=== PATIENT | male | born 1965 | race African-American/Black ===

== ENCOUNTER 2016-10-13 10:21 | Emergency (ER) | payer MEDICARE ==
--- NOTE | 2016-10-13 11:26 | ER Document Report ---
ED Medical Screen (RME) - General Chief Complaint: Groin Pain Stated Complaint: HEAD PAIN Time seen by provider: 11:24 Mode of Arrival: Ambulatory Information source: Patient Notes: 51 yo male presents to ed for headache congestion groin pain left, anal pain for a few days. TRAVEL OUTSIDE OF THE [place] IN LAST 30 DAYS: No - HPI Onset: Other - few days Onset/Duration: Gradual, Worse Quality of pain: Achy, Dull, Sharp Severity: Moderate Pain Level: 4 Associated Symptoms: Cough (nonproductive), Rhinorrhea, Sinus pain/drainage, Other - groin and anal pain Exacerbated by: Movement Relieved by: Denies Similar symptoms previously: Yes Recently seen / treated by doctor: No - Related Data Smoking: Cigarettes Frequency of alcohol use: Social Drug Abuse: None Allergies/Adverse Reactions: No Known Allergies Allergy (Verified 10/13/16 10:45) Past Medical History Psychiatric Medical History: Reports: Hx Bipolar Disorder Past Surgical History: Reports: Hx Orthopedic Surgery - Immunizations Hx Diphtheria, Pertussis, Tetanus Vaccination: No Physical Exam - Vital signs Vitals: Temp Pulse Resp BP Pulse Ox 98.3 F 75 18 132/81 H 100 10/13/16 10:32 10/13/16 10:32 10/13/16 10:32 10/13/16 10:32 10/13/16 10:32 Course - Vital Signs Vital signs: Temp Pulse Resp BP Pulse Ox 98.3 F 75 18 132/81 H 100 10/13/16 10:32 10/13/16 10:32 10/13/16 10:32 10/13/16 10:32 10/13/16 10:32
[2016-10-13] MEDS ORDERED: IBUPROFEN 800 MG TABLET PO ONE (11:27)
--- NOTE | 2016-10-13 12:23 | ER Document Report ---
ED GI/ - General Mode of Arrival: Ambulatory Information source: Patient TRAVEL OUTSIDE OF THE [place] IN LAST 30 DAYS: No - HPI Patient complains to provider of: Groin pain Associated symptoms: Other - See above - General Chief Complaint: Groin Pain Stated Complaint: groin pain Notes: Patient is a 51 year old male, with a past medical history including bipolar disorder and hernia repair, who presents to the emergency department complaining of left sided groin pain onset 2-3 days ago. Patient states that he also has anal pain with bowel movements that is exacerbated by wiping. Patient has been using warm compressions and taking hot baths for relief. Patient also complains of headache and nasal congestion for the past week. Patient is prescribed Tylenol with Codeine #3. Patient states that he has a colonoscopy scheduled for 10/30. PCP: Dr. Pritchard (ILIR ANDERS) - Related Data Allergies/Adverse Reactions: No Known Allergies Allergy (Verified 10/13/16 10:45) Past Medical History - General Information source: Patient - Social History Smoking Status: Unknown if Ever Smoked Frequency of alcohol use: Social Drug Abuse: None Family History: None, Reviewed & Not Pertinent Psychiatric Medical History: Reports: Hx Bipolar Disorder Past Surgical History: Reports: Hx Herniorrhaphy, Hx Orthopedic Surgery - Immunizations Hx Diphtheria, Pertussis, Tetanus Vaccination: No Review of Systems - Review of Systems Constitutional: No symptoms reported EENT: See HPI, Nose congestion Cardiovascular: No symptoms reported Respiratory: No symptoms reported Gastrointestinal: Other - anal pain Genitourinary: See HPI, Pain - groin Male Genitourinary: No symptoms reported Musculoskeletal: No symptoms reported Skin: No symptoms reported Hematologic/Lymphatic: No symptoms reported Neurological/Psychological: See HPI, Headaches -: Yes All other systems reviewed and negative Physical Exam - Vital signs Interpretation: Normal - General General appearance: Appears well, Alert - HEENT Head: Normocephalic, Atraumatic - Respiratory Respiratory status: No respiratory distress Chest status: Nontender Breath sounds: Normal Chest palpation: Normal - Cardiovascular Rhythm: Regular Heart sounds: Normal auscultation Murmur: No - Abdominal Inspection: Normal Distension: No distension Bowel sounds: Normal Tenderness: Nontender Organomegaly: No organomegaly - Rectal Hemorrhoids: No: External, Anal fissure - Genitourinary Tenderness: Other - Tenderness to palpation of left groin and left inguinal lymph node is swollen - Back Back: Normal, Nontender - Extremities General upper extremity: Normal inspection, Normal ROM, Normal strength General lower extremity: Normal inspection, Normal ROM, Normal strength, Normal weight bearing - Neurological Neuro grossly intact: Yes Cognition: Normal Orientation: AAOx4 [place] Coma Scale Eye Opening: Spontaneous [place] Coma Scale Verbal: Oriented [place] Coma Scale Motor: Obeys Commands Jay[place] Coma Scale Total: 15 Speech: Normal Motor strength normal: LUE, RUE, LLE, RLE - Psychological Associated symptoms: Normal affect, Normal mood - Skin Skin Temperature: Warm Skin Moisture: Dry Skin Color: Normal - Vital signs Vitals: Temp Pulse Resp BP Pulse Ox 98.3 F 75 18 132/81 H 100 10/13/16 10:32 10/13/16 10:32 10/13/16 10:32 10/13/16 10:32 10/13/16 10:32 (ILIR ANDERS) (ROMAN MARIE) - Rectal Notes: Anal stenosis (ILIR ANDERS) Discharge - Discharge Clinical Impression: Inguinal lymphadenopathy, Internal anal sphincter stenosis Upper respiratory tract infection Qualifiers: URI type: unspecified viral URI Qualified Code(s): J06.9 - Acute upper respiratory infection, unspecified Condition: Stable Disposition: HOME, SELF-CARE Additional Instructions: Upper Respiratory Illness: You have a viral infection of the respiratory passages -- a "cold." This common infection causes nasal congestion, drainage, and often sore throat and cough. It is caused by a virus and is highly contagious. The disease usually lasts a week or more, though the worst symptoms are usually over in 3 or 4 days. There is no "cure" for the viral infection -- it must run its course. If there is a complication, such as bacterial infection in the nose, sinuses, middle ear, or bronchial tubes, antibiotics may be required, but antibiotics won 't affect the virus. If you smoke, you should STOP!! Drink plenty of fluids. A humidifier may help. An expectorant medication or decongestant may make you more comfortable. Use acetaminophen or ibuprofen for fever or aches. See the doctor if fever persists over two or three days, if there is any significant worsening of your symptoms, or if you simply fail to improve as expected. Inguinal Lymphadenitis: You have enlargement and inflammation of inguinal lymph glands, called lymphadenitis. Lymph glands filter tissue fluids. They help to fight infection. Most of the time, enlarged lymph glands are not serious. Lymph glands may react to a viral or bacterial infection by becoming swollen and painful. When the infection goes away, the glands shrink. Sometimes a lymph gland will remain enlarged for a long time after an infection. Occasionally, a lymph gland may be overwhelmed by infection and form an abscess. If an enlarged lymph gland has signs that are suspicious for tumor, the doctor will recommend a biopsy. A suspicious gland usually is NOT painful, grows very slowly, and is rock-hard to touch. See the doctor or return if there is increasing swelling and redness, high fever, difficulty breathing, or any other change for the worse. //////////////////////////////////////////////////////////////////////////////// //////////////////////////////////////////////////////////////////////////////// ////////////////// Take medications as prescribed. Limit walking. Take a stool softener to keep the bowel movements soft. Drink plenty of fluids. Rollup a few layers of toilet tissue and put water on it prior to wiping when you have a bowel movement. Then place a small amount of Vaseline on the anal area following each bowel movement. Be sure to keep your appointment for your scheduled colonoscopy. Follow-up with your doctor this week for recheck. Prescriptions: Doxycycline Hyclate 100 mg PO BID #20 tablet Scribe Attestation: 10/13/16 12:29 I personally performed the services described in the documentation, reviewed and edited the documentation which was dictated to the scribe in my presence, and it accurately records my words and actions. (ROMAN MARIE) Scribe Documentation - Scribe Written by Myriam:: Myriam Braga, 10/13/16, 12:57
[2016-10-13 12:50] VITALS: BP 126/71
== END 2016-10-13 12:52 | disposition home or self-care (01) ==
LOC: ER 10:21
DX: K62.4 Stenosis of anus and rectum (principal); R59.0 Localized enlarged lymph nodes; J06.9 Acute upper respiratory infection, unspecified; R10.30 Lower abdominal pain, unspecified; F31.9 Bipolar disorder, unspecified
CPT/HCPCS: 99283; A9270

== ENCOUNTER 2017-09-26 13:22 | Emergency (ER) | payer MEDICARE, MEDICAID ==
[2017-09-26 13:34] VITALS: BP 132/73
--- NOTE | 2017-09-26 13:47 | ER Document Report ---
ED Medical Screen (RME) - General Chief Complaint: Boil Stated Complaint: POSSIBLE ABCESS/PAIN Time Seen by Provider: 09/26/17 13:42 Notes: 51-year-old male patient reports painful swelling area to his left proximal dorsal penis. He was seen in urgent care and put on Septra DS and Keflex. Brief exam shows what appears to be an epidermal inclusion cyst that is infected and needs incision and drainage. He reports he has squeezed before and gotten material out of it. I have greeted and performed a rapid initial assessment of this patient. A comprehensive ED assessment and evaluation of the patient, analysis of test results and completion of the medical decision making process will be conducted by additional ED providers. TRAVEL OUTSIDE OF THE [place] IN LAST 30 DAYS: No - Related Data Allergies/Adverse Reactions: No Known Allergies Allergy (Verified 10/13/16 10:45) Home Medications: Current Home Medications Cephalexin [Cephalexin 500 MG Capsule] 500 mg PO QID 09/26/17 [History] Sulfamethoxazole/Trimethoprim [Septra-Ds 800-160 mg Tablet] 1 tab PO BID [History] Past Medical History - Social History Chew tobacco use (# tins/day): No Frequency of alcohol use: Occasional Drug Abuse: None Renal/ Medical History: Denies: Hx Peritoneal Dialysis Psychiatric Medical History: Reports: Hx Bipolar Disorder Past Surgical History: Reports: Hx Herniorrhaphy, Hx Orthopedic Surgery - Immunizations Hx Diphtheria, Pertussis, Tetanus Vaccination: No Physical Exam - Vital signs Vitals: Temp Pulse Resp BP Pulse Ox 97.8 F 81 18 132/73 H 98 09/26/17 13:34 09/26/17 13:34 09/26/17 13:34 09/26/17 13:34 09/26/17 13:34 Course - Vital Signs Vital signs: Temp Pulse Resp BP Pulse Ox 97.8 F 81 18 132/73 H 98 09/26/17 13:34 09/26/17 13:34 09/26/17 13:34 09/26/17 13:34 09/26/17 13:34
[2017-09-26] MEDS ORDERED: LIDOCAINE 1% INJ-PF (10 MG/ML) 30 ML SDV INJ ONE (14:26)
--- NOTE | 2017-09-26 14:29 | ER Document Report ---
ED General - General Chief Complaint: Boil Stated Complaint: POSSIBLE ABCESS/PAIN Time Seen by Provider: 09/26/17 13:42 Mode of Arrival: Ambulatory Information source: Patient Notes: 51-year-old male presents with complaints of abscess of the penile shaft of one- week duration. Patient denies any fevers or chills denies any nausea vomiting or diarrhea. Patient notes he has been sexually active with a promiscuous female. Patient is unsure of any STD exposure. Patient was started on antibiotics 1 week ago by urgent care Bactrim and Keflex with no improvement of the abscess TRAVEL OUTSIDE OF THE [place] IN LAST 30 DAYS: No - HPI Onset: Last week Onset/Duration: Persistent, Worse Quality of pain: Achy Severity: Mild Pain Level: 1 Associated symptoms: None Exacerbated by: Denies Relieved by: Denies Similar symptoms previously: Yes Recently seen / treated by doctor: Yes - Related Data Allergies/Adverse Reactions: No Known Allergies Allergy (Verified 09/26/17 14:32) Home Medications: Current Home Medications Cephalexin [Cephalexin 500 MG Capsule] 500 mg PO QID 09/26/17 [History] Sulfamethoxazole/Trimethoprim [Septra-Ds 800-160 mg Tablet] 1 tab PO BID [History] Past Medical History - Social History Smoking Status: Current Some Day Smoker Cigarette use (# per day): Yes Chew tobacco use (# tins/day): No Smoking Education Provided: No Frequency of alcohol use: Occasional Drug Abuse: None Family History: None, Reviewed & Not Pertinent Patient has suicidal ideation: No Patient has homicidal ideation: No Renal/ Medical History: Denies: Hx Peritoneal Dialysis Psychiatric Medical History: Reports: Hx Bipolar Disorder Past Surgical History: Reports: Hx Herniorrhaphy, Hx Orthopedic Surgery - Immunizations Hx Diphtheria, Pertussis, Tetanus Vaccination: No Review of Systems - Review of Systems Notes: REVIEW OF SYSTEMS: CONSTITUTIONAL : Denies fever, chills, or sweats. Denies recent illness. EENT: Denies eye, ear, throat, or mouth pain or symptoms. Denies nasal or sinus congestion or discharge. Denies throat, tongue, or mouth swelling or difficulty swallowing. CARDIOVASCULAR: Denies chest pain. Denies palpitations or racing or irregular heart beat. Denies ankle edema. RESPIRATORY: Denies cough, cold, or chest congestion. Denies shortness of breath, difficulty breathing, or wheezing. GASTROINTESTINAL: Denies abdominal pain or distention. Denies nausea, vomiting , or diarrhea. Denies blood in vomitus, stools, or per rectum. Denies black, tarry stools. Denies constipation. GENITOURINARY: Denies difficulty urinating, painful urination, burning, frequency, blood in urine, or discharge. MUSCULOSKELETAL: Denies back or neck pain or stiffness. Denies joint pain or swelling. SKIN: Abscess HEMATOLOGIC : Denies easy bruising or bleeding. LYMPHATIC: Denies swollen, enlarged glands. NEUROLOGICAL: Denies confusion or altered mental status. Denies passing out or loss of consciousness. Denies dizziness or lightheadedness. Denies headache. Denies weakness or paralysis or loss of use of either side. Denies problems with gait or speech. Denies sensory loss, numbness, or tingling. Denies seizures. PSYCHIATRIC: Denies anxiety or stress. Denies depression, suicidal ideation, or homicidal ideation. ALL OTHER SYSTEMS REVIEWED AND NEGATIVE. Dictation was performed using [employer] voice recognition software PHYSICAL EXAMINATION: GENERAL: Well-appearing, well-nourished and in no acute distress. HEAD: Atraumatic, normocephalic. EYES: Pupils equal round and reactive to light, extraocular movements intact, sclera anicteric, conjunctiva are normal. ENT: Nares patent, oropharynx clear without exudates. Moist mucous membranes. NECK: Normal range of motion, supple without lymphadenopathy LUNGS: Breath sounds clear to auscultation bilaterally and equal. No wheezes rales or rhonchi. HEART: Regular rate and rhythm without murmurs ABDOMEN: Soft, nontender, nondistended abdomen. No guarding, no rebound. No masses appreciated. Musculoskeletal: Normal range of motion, no pitting or edema. No cyanosis. NEUROLOGICAL: Cranial nerves grossly intact. Normal speech, normal gait. Normal sensory, motor exams PSYCH: Normal mood, normal affect. SKIN: 1 x 1 cm abscess of the left penile shaft Physical Exam - Vital signs Vitals: Temp Pulse Resp BP Pulse Ox 97.8 F 81 18 132/73 H 98 09/26/17 13:34 09/26/17 13:34 09/26/17 13:34 09/26/17 13:34 09/26/17 13:34 Course - Re-evaluation Re-evalutation: 09/26/17 14:45 With patient's permission area will be anesthetized incised 09/26/17 15:25 Patient is already on Bactrim and Keflex will get pain control otherwise incision was well patient tolerated procedure no abnormality noted After performing a Medical Screening Examination, I estimate there is LOW risk for OPEN FRACTURE, COMPARTMENT SYNDROME, TENDON RUPTURE, ACUTE NEUROVASCULAR INJURY, or RETAINED FOREIGN BODY, thus I consider the discharge disposition reasonable. Also, there is no evidence or peritonitis, sepsis, or toxicity. I have reevaluated this patient multiple times and no significant life threatening changes are noted. The patient and I have discussed the diagnosis and risks, and we agree with discharging home with close follow-up with the understanding that symptoms and presentations can change. We also discussed returning to the Emergency Department immediately if new or worsening symptoms occur. We have discussed the symptoms which are most concerning (e.g., changing or worsening pain, fever, numbness, weakness, cool or painful digits) that necessitate immediate return. - Vital Signs Vital signs: Temp Pulse Resp BP Pulse Ox 97.8 F 81 18 132/73 H 98 09/26/17 13:34 09/26/17 13:34 09/26/17 13:34 09/26/17 13:34 09/26/17 13:34 Procedures - Incision and Drainage Left Groin Time completed: 15:25 - left shaft penis Type: Simple Anesthetic type: 1% Lidocaine mL's of anesthetic: 2 Blade size: 11 Incision Method: Incision made by scalpel Amount/type of drainage: small amount of pus with thick core Discharge - Discharge Clinical Impression: Penile abscess, Possible exposure to STD Condition: Stable Disposition: HOME, SELF-CARE Instructions: Post Incision and Drainage Prescriptions: Oxycodone HCl/Acetaminophen [Percocet 5-325 mg Tablet] 1 - 2 tab PO Q4H PRN #10 tablet PRN Reason: Referrals: ZANE HAND MD [Primary Care Provider] - Follow up in 3-5 days
[2017-09-26 15:00] LABS: APPEARANCE,URINE CLEAR; BILIRUBIN,URINE NEGATIVE (NEGATIVE); GLUCOSE, URINE NEGATIVE (NEGATIVE); KETONES,URINE NEGATIVE (NEGATIVE); LEUKOCYTE ESTERASE,URINE NEGATIVE (NEGATIVE); NITRITE,URINE NEGATIVE (NEGATIVE); PROTEIN,URINE NEGATIVE (NEGATIVE); UROBILINOGEN,URINE NEGATIVE mg/dL (<2.0)
== END 2017-09-26 15:49 | disposition home or self-care (01) ==
LOC: ER 13:22
DX: N48.21 Abscess of corpus cavernosum and penis (principal); Z20.2 Contact with and (suspected) exposure to infections with a predominantly sexual mode of transmission; F17.210 Nicotine dependence, cigarettes, uncomplicated
CPT/HCPCS: 36415; 81001; 86592; 87491; 87591; 99283

== ENCOUNTER 2018-06-14 15:09 | Emergency (ER) | payer MEDICARE, MEDICAID ==
[2018-06-14] MEDS ORDERED: CEFTRIAXONE INJ 1000 MG VIAL IM ONE ×2 (16:01→17:07)
[2018-06-14] MEDS ORDERED: LIDOCAINE 1% INJ-PF (10 MG/ML) 30 ML SDV INJ ONE (16:01)
[2018-06-14] MEDS ORDERED: AZITHROMYCIN 250 MG TABLET PO ONE (16:02)
--- NOTE | 2018-06-14 16:06 | ER Document Report ---
HPI - HPI Patient complains to provider of: Sinus congestion, concern about STD Onset/Duration: Persistent Quality of pain: Achy Pain Level: 2 Context: Patient presents complaining of sneezing, headache and sinus congestion symptoms for the past month. Patient also reports generalized body aches. Patient denies any fever or urinary symptoms. She does report recent intercourse with a new sexual partner and states that he is concerned he may have an STD. Patient states that he has had some irritation to the penis. Associated Symptoms: Headache, Sinus pain/drainage. denies: Fever Exacerbated by: Denies Relieved by: Denies Similar symptoms previously: No Recently seen / treated by doctor: No - ROS ROS below otherwise negative: Yes Systems Reviewed and Negative: Yes All other systems reviewed and negative - CONSTITUTIONAL Constitutional: DENIES: Fever - EENT EENT: REPORTS: Nasal Drainage-Purulent, Congestion - NEURO Neurology: REPORTS: Headache - RESPIRATORY Respiratory: DENIES: Coughing - GASTROINTESTINAL Gastrointestinal: DENIES: Nausea, Patient vomiting - URINARY Urinary: REPORTS: Dysuria - Occasional burning - MUSCULOSKELETAL Musculoskeletal: REPORTS: Extremity pain - Generalized body aches - DERM Skin Color: Normal Skin Problems: None Past Medical History - General Information source: Patient - Social History Smoking Status: Current Every Day Smoker Frequency of alcohol use: Occasional Drug Abuse: None Occupation: Retired Family History: None, Reviewed & Not Pertinent Renal/ Medical History: Reports: Hx Benign Prostatic Hyperplasia. Denies: Hx Peritoneal Dialysis Psychiatric Medical History: Reports: Hx Bipolar Disorder Past Surgical History: Reports: Hx Herniorrhaphy, Hx Orthopedic Surgery - Immunizations Hx Diphtheria, Pertussis, Tetanus Vaccination: No Vertical Provider Document - CONSTITUTIONAL Agree With Documented VS: Yes Exam Limitations: No Limitations General Appearance: WD/WN, No Apparent Distress - INFECTION CONTROL TRAVEL OUTSIDE OF THE [place] IN LAST 30 DAYS: No - HEENT HEENT: Atraumatic, Normocephalic. negative: Pharyngeal Exudate, Pharyngeal Tenderness, Pharyngeal Erythema, Tympanic Membrane Red, Tympanic Membrane Bulging Notes: Mild frontal sinus tenderness, purulent nasal drainage. No facial swelling - NECK Neck: Normal Inspection, Supple. negative: Lymphadenopathy-Left, Lymphadenopathy-Right - RESPIRATORY Respiratory: Breath Sounds Normal, No Respiratory Distress - CARDIOVASCULAR Cardiovascular: Regular Rate, Regular Rhythm - GI/ABDOMEN Gastrointestinal: Abdomen Soft, Abdomen Non-Tender - REPRODUCTIVE Male Genitalia: Normal Inspection Notes: Katharina SHIPMAN is standby - BACK Back: Normal Inspection. negative: CVA Tenderness-Right, CVA Tenderness-Left - MUSCULOSKELETAL/EXTREMETIES Musculoskeletal/Extremeties: ARELY MARTINEZ - NEURO Level of Consciousness: Awake, Alert, Appropriate Motor/Sensory: No Motor Deficit - DERM Integumentary: Warm, Dry, No Rash Course - Re-evaluation Re-evalutation: 06/14/18 Patient's urinalysis clear, no concern for UTI at this time. Will treat prophylactically for STDs at this time. Patient has had sinus congestion symptoms and pressure for the past month, will cover for sinusitis with amoxicillin at this time. Good return precautions given to patient. The patient presents with headache without signs of SHUTTLE OPERATOR bleed, stroke, or other serious etiology. The patient is neurologically intact. Given the extremely low risk of these diagnoses further testing and evaluation for these possibilities does not appear to be indicated at this time. The patient has been instructed to return if the symptoms worsen or change in any way. - Vital Signs Vital signs: Temp Pulse Resp BP Pulse Ox 98.0 F 74 20 119/74 97 06/14/18 15:15 06/14/18 15:15 06/14/18 15:15 06/14/18 15:15 06/14/18 15:15 - Laboratory Laboratory results interpreted by me: 06/14/18 17:08 Labs- Entire Visit 06/14/18 16:24 Urine Color YELLOW Urine Appearance SLIGHTLY-CLOUDY Urine pH 6.0 Ur Specific [place] 1.021 Urine Protein NEGATIVE Urine Glucose (UA) NEGATIVE Urine Ketones NEGATIVE Urine Blood NEGATIVE Urine Nitrite NEGATIVE Urine Bilirubin NEGATIVE Urine Urobilinogen NEGATIVE Ur Leukocyte Esterase NEGATIVE Urine WBC (Auto) 1 Urine RBC (Auto) 2 Squamous Epi Cells Auto <1 Urine Mucus (Auto) RARE Urine Ascorbic Acid NEGATIVE Discharge - Discharge Clinical Impression: Concern about STD in male without diagnosis Sinusitis Qualifiers: Sinusitis location: unspecified location Chronicity: acute Recurrence: non- recurrent Qualified Code(s): J01.90 - Acute sinusitis, unspecified Condition: Stable Disposition: HOME, SELF-CARE Instructions: Amoxicillin ([facility]), Azithromycin ([facility]), Rocephin ([facility]), Sinusitis ([facility]) Additional Instructions: Return immediately for any new or worsening symptoms Followup with your primary care provider, call tomorrow to make a followup appointment Culture is pending, we will call if you need any different treatment Prescriptions: Amoxicillin 500 mg PO TID #30 tablet Fluticasone Propionate [Flonase Nasal [place] 50 Mcg/[place] 16 gm] 2 spray NASL DAILY #1 bottle Naproxen [Naprosyn 250 Nmg Tablet] 1 tab PO BID #14 tablet Forms: Smoking Cessation Education Referrals: ZANE HAND MD [Primary Care Provider] - Follow up as needed
[2018-06-14 16:53] LABS: APPEARANCE,URINE SLIGHTLY-CLOUDY; BILIRUBIN,URINE NEGATIVE (NEGATIVE); COLOR,URINE YELLOW; GLUCOSE, URINE NEGATIVE (NEGATIVE); KETONES,URINE NEGATIVE (NEGATIVE); LEUKOCYTE ESTERASE,URINE NEGATIVE (NEGATIVE); NITRITE,URINE NEGATIVE (NEGATIVE); PROTEIN,URINE NEGATIVE (NEGATIVE); URINE SPECIFIC GRAVITY 1.021; UROBILINOGEN,URINE NEGATIVE mg/dL (<2.0)
[2018-06-14 17:20] VITALS: BP 139/93
[2018-06-14 18:09] LABS: CHLAM PCR NOT DETECTED (NOT DETECT); GON PCR NOT DETECTED (NOT DETECT)
== END 2018-06-14 17:20 | disposition home or self-care (01) ==
LOC: ER 15:09
DX: J01.90 Acute sinusitis, unspecified (principal); R06.7 Sneezing; R51 Headache; F17.210 Nicotine dependence, cigarettes, uncomplicated; Z71.1 Person with feared health complaint in whom no diagnosis is made
CPT/HCPCS: 99283; 96372; 81001; 87491; 87591; A9270; J3490; J0696

== ENCOUNTER 2018-12-08 09:32 | Emergency (ER) | payer MEDICARE, MEDICAID ==
[2018-12-08 09:41] VITALS: BP 136/88
--- NOTE | 2018-12-08 11:06 | ER Document Report ---
ED Medical Screen (RME) - General Chief Complaint: Flank Pain Stated Complaint: BACK PAIN, EYE PAIN Time Seen by Provider: 12/08/18 11:00 Primary Care Provider: ZANE HAND MD [Primary Care Provider] - Follow up as needed Notes: Chief complaint: Multiple complain History of complain:( obtained from----patient) 53 years old male, presents today with pain over the lower back nonradiating for a month, abdominal discomfort, constipation, scrotal pain for the last few days. No fever chills or other constitutional symptoms PHYSICAL EXAMINATION: GENERAL: Well-appearing, well-nourished and in no acute distress. HEAD: Atraumatic, normocephalic. EYES: Pupils equal round and reactive to light, extraocular movements intact, conjunctiva are normal. ENT: Nares patent, oropharynx clear without exudates. Moist mucous membranes. NECK: Normal range of motion, supple without lymphadenopathy LUNGS: Breath sounds clear to auscultation bilaterally and equal. No wheezes rales or rhonchi. HEART: Regular rate and rhythm without murmurs ABDOMEN: Soft, nontender, nondistended abdomen. No guarding, no rebound. No masses appreciated. Examination of genitals-deferred Dictation was performed using [employer] voice recognition software TRAVEL OUTSIDE OF THE [place] IN LAST 30 DAYS: No - Related Data Allergies/Adverse Reactions: No Known Allergies Allergy (Verified 12/08/18 09:33) Past Medical History Renal/ Medical History: Reports: Hx Benign Prostatic Hyperplasia. Denies: Hx Peritoneal Dialysis Psychiatric Medical History: Reports: Hx Bipolar Disorder Past Surgical History: Reports: Hx Abdominal Surgery - hernia repair, Hx Hernio rrhaphy, Hx Orthopedic Surgery - Immunizations Hx Diphtheria, Pertussis, Tetanus Vaccination: No Physical Exam - Vital signs Vitals: Temp Pulse Resp BP Pulse Ox 99.1 F 75 16 136/88 H 96 12/08/18 09:37 12/08/18 09:37 12/08/18 09:37 12/08/18 09:37 12/08/18 09:37 Course - Vital Signs Vital signs: Temp Pulse Resp BP Pulse Ox 99.1 F 75 16 136/88 H 96 12/08/18 09:37 12/08/18 09:37 12/08/18 09:37 12/08/18 09:37 12/08/18 09:37 Doctor's Discharge - Discharge Referrals: ZANE HAND MD [Primary Care Provider] - Follow up as needed
[2018-12-08 11:47] LABS: ABSOLUTE EOSINOPHILS # (AUTO) 0.1 10^3/uL (0.0-0.6); ABSOLUTE LYMPHOCYTES (AUTO) 2.2 10^3/uL (0.5-4.7); ABSOLUTE MONOCYTES (AUTO) 0.4 10^3/uL (0.1-1.4); ABSOLUTE NEUT (AUTO) 2.9 10^3/uL (1.7-8.2); BASOPHILS % (AUTO) 0.8 % (0-2); EOSINOPHILS % (AUTO) 1.8 % (0-6); HEMATOCRIT 42.7 % (37.9-51.0); HEMOGLOBIN 14.8 g/dL (13.5-17.0); LYMPHOCYTES % (AUTO) 38.6 % (13-45); MEAN CORPUSCULAR HEMOGLOBIN 32.5 pg (27.0-33.4); MEAN CORPUSCULAR HGB CONC 34.6 g/dL (32.0-36.0); MEAN CORPUSCULAR VOLUME 94 fl (80-97); MONOCYTES % (AUTO) 6.8 % (3-13); PLATELET COUNT 310 10^3/uL (150-450); RED BLOOD COUNT 4.55 10^6/uL (4.35-5.55); RED CELL DISTRIBUTION WIDTH 13.6 % (11.5-14.0); TOTAL CELLS COUNTED % (AUTO) 100 %; WHITE BLOOD COUNT 5.6 10^3/uL (4.0-10.5)
[2018-12-08 11:49] LABS: APPEARANCE,URINE SLIGHTLY-CLOUDY; BILIRUBIN,URINE NEGATIVE (NEGATIVE); COLOR,URINE YELLOW; GLUCOSE, URINE NEGATIVE (NEGATIVE); KETONES,URINE NEGATIVE (NEGATIVE); LEUKOCYTE ESTERASE,URINE NEGATIVE (NEGATIVE); NITRITE,URINE NEGATIVE (NEGATIVE); PROTEIN,URINE NEGATIVE (NEGATIVE); URINE SPECIFIC GRAVITY 1.014; UROBILINOGEN,URINE NEGATIVE mg/dL (<2.0)
[2018-12-08 12:04] LABS: ALANINE AMINOTRANSFERASE 45 U/L (21-72); ALBUMIN 4.6 g/dL (3.5-5.0); ALKALINE PHOSPHATASE 64 U/L (38-126); ANION GAP 7 (5-19); ASPARTATE AMINO TRANSFERASE 60 U/L (17-59); BILIRUBIN,DIRECT 0.2 mg/dL (0.0-0.4); BILIRUBIN,TOTAL 0.7 mg/dL (0.2-1.3); BLOOD UREA NITROGEN 13 mg/dL (7-20); CALCIUM 9.5 mg/dL (8.4-10.2); CARBON DIOXIDE 30 mmol/L (22-30); CHLORIDE 103 mmol/L (98-107); LIPASE 50.5 U/L (23-300); POTASSIUM 4.4 mmol/L (3.6-5.0); SODIUM 140.4 mmol/L (137-145); TOTAL PROTEIN 7.6 g/dL (6.3-8.2)
[2018-12-08 12:08] LABS: URINE AMPHETAMINES SCREEN NEGATIVE; URINE BARBITURATES SCREEN NEGATIVE; URINE BENZODIAZEPINES SCREEN NEGATIVE; URINE COCAINE SCREEN NEGATIVE; URINE MARIJUANA (THC) SCREEN UNCONFIRMED POSITIVE; URINE METHADONE SCREEN NEGATIVE; URINE PHENCYCLIDINE SCREEN NEGATIVE
[2018-12-08 12:15] LABS: GLUCOSE 68 mg/dL (75-110)
[2018-12-08] MEDS ORDERED: KETOROLAC TROMETHAMINE INJ/PF 30 MG/1 ML SDV IV ONE (13:03)
--- NOTE | 2018-12-08 13:44 | RADIOLOGY REPORT (SQ) ---
EXAM DESCRIPTION: CHEST 2 VIEWS COMPLETED DATE/TIME: 12/08/2018 1:35 pm REASON FOR STUDY: cough COMPARISON: None. EXAM PARAMETERS: NUMBER OF VIEWS: two views TECHNIQUE: Digital Frontal and Lateral radiographic views of the chest acquired. RADIATION DOSE: NA LIMITATIONS: none FINDINGS: LUNGS AND PLEURA: No opacities, masses or pneumothorax. No pleural effusion. MEDIASTINUM AND HILAR STRUCTURES: No masses or contour abnormalities. HEART AND VASCULAR STRUCTURES: Heart normal size. No evidence for failure. BONES: No acute findings. HARDWARE: None in the chest. OTHER: No other significant finding. IMPRESSION: No focal consolidation or other evidence of acute cardiopulmonary process. TECHNICAL DOCUMENTATION: JOB ID: [id number]- All Rights Reserved Reading location - IP/workstation name: [email or web address]
--- NOTE | 2018-12-08 14:48 | ER Document Report ---
Entered by AMANDO HAGAN SCRIBE 12/08/18 1313 Acting as scribe for:ROMAN MARIE MD ED General - General Chief Complaint: Flank Pain Stated Complaint: BACK PAIN, EYE PAIN Time Seen by Provider: 12/08/18 11:00 Primary Care Provider: ZANE PRITCHARD MD [Primary Care Provider] - Follow up as needed Mode of Arrival: Ambulatory Information source: Patient Notes: Patient is a 53 year old male presenting to the emergency department complaining of multiple symptoms including a cough, back pain, dysuria and watery eyes. Patient states he was given a 5 day course prednisone on 11/28/18 for respiratory symptoms and feels they have not helped. He states for approximately 1.5 weeks, he has had low back pain and groin pain further stating he has some burning with urination and has a "weak stream" when urinating. He states he has mentioned his urinary symptoms to his PCP, Dr. Pritchard, and denies an enlarged prostate. He further denies any hematuria, nausea, vomiting or fevers. He also complains of "watery eyes" further stating he has intermittent crusting around his eyes bilaterally onset approximately 1 month ago. Patient was also prescribed doxycycline on 11/19/18. TRAVEL OUTSIDE OF THE [place] IN LAST 30 DAYS: No - Related Data Allergies/Adverse Reactions: No Known Allergies Allergy (Verified 12/08/18 09:33) Past Medical History - General Information source: Patient - Social History Smoking Status: Current Some Day Smoker Cigarette use (# per day): Yes Chew tobacco use (# tins/day): No Frequency of alcohol use: Occasional Drug Abuse: Marijuana Family History: None, Reviewed & Not Pertinent Patient has suicidal ideation: No Patient has homicidal ideation: No Renal/ Medical History: Reports: Hx Benign Prostatic Hyperplasia Psychiatric Medical History: Reports: Hx Bipolar Disorder Past Surgical History: Reports: Hx Abdominal Surgery - hernia repair, Hx Herniorrhaphy, Hx Orthopedic Surgery - Immunizations Hx Diphtheria, Pertussis, Tetanus Vaccination: No Review of Systems - Review of Systems Constitutional: No symptoms reported EENT: See HPI, Eye discharge Cardiovascular: No symptoms reported Respiratory: See HPI, Cough Gastrointestinal: No symptoms reported Genitourinary: See HPI, Burning Musculoskeletal: See HPI, Back pain Skin: No symptoms reported Hematologic/Lymphatic: No symptoms reported Neurological/Psychological: No symptoms reported -: Yes All other systems reviewed and negative Physical Exam - Vital signs Vitals: Temp Pulse Resp BP Pulse Ox 99.1 F 75 16 136/88 H 96 12/08/18 09:37 12/08/18 09:37 12/08/18 09:37 12/08/18 09:37 12/08/18 09:37 - Notes Notes: GENERAL: Alert, interacts well. No acute distress. HEAD: Normocephalic, atraumatic. EYES: Pupils equal, round, and reactive to light. Extraocular movements intact. There is no crusting or discharge at this time, but there is some injection to the scleral and palpebral conjunctiva bilaterally. ENT: Oral mucosa moist, tongue midline. NECK: Full range of motion. Supple. Trachea midline. LUNGS: Clear to auscultation bilaterally, no wheezes, rales, or rhonchi. No respiratory distress. HEART: Regular rate and rhythm. No murmurs, gallops, or rubs. ABDOMEN: Soft, non-tender. Non-distended. Bowel sounds present in all 4 quadran ts. No guarding, rigidity, or rebound. EXTREMITIES: Moves all 4 extremities spontaneously. NEUROLOGICAL: Alert and oriented x3. Normal speech. PSYCH: Normal affect, normal mood. SKIN: Warm, dry, normal turgor. No rashes or lesions noted. BACK: Tender to palpate the lumbar muscles bilaterally. Course - Vital Signs Vital signs: Temp Pulse Resp BP Pulse Ox 99.1 F 75 16 136/88 H 96 12/08/18 09:37 12/08/18 09:37 12/08/18 09:37 12/08/18 09:37 12/08/18 09:37 - Laboratory Result Diagrams: 12/08/18 11:20 12/08/18 11:20 Laboratory results interpreted by me: 12/08/18 11:20 Glucose 68 L AST 60 H - Diagnostic Test Radiology reviewed: Image reviewed, Reports reviewed - Chest x-ray is unremarkable. Discharge - Discharge Clinical Impression: Bronchitis, Lumbar back pain Conjunctivitis Qualifiers: Conjunctivitis type: unspecified Laterality: bilateral Qualified Code(s): H10.9 - Unspecified conjunctivitis Condition: Stable Disposition: HOME, SELF-CARE Additional Instructions: Bronchitis You have acute bronchitis. This disease is an infection or inflammation of the air passageways in your lungs. Symptoms usually include cough, low grade fever, shortness of breath, and wheezing. The cough usually persists for a couple of weeks. Most cases of bronchitis get better without antibiotics. We prescribe antibiotics when we believe bacteria are damaging your airways, or if there's high risk the bronchitis will worsen into pneumonia. Increase your fluid intake. A cool mist humidifier may make your lungs more comfortable. An expectorant (cough medicine that loosens phlegm) can help. If you smoke, STOP!!! Recovery from bronchitis can be somewhat slow, but you should see improvement within a day or two. Repeated episodes of bronchitis may result in lung damage -- for example, chronic bronchitis, recurrent pneumonias, or emphysema. Call the doctor if you develop increasing fever, shortness of breath, chest pain, bloody sputum, or otherwise worsen. If you have not improved at all after several days, contact the physician. Conjunctivitis You have an infection in your eye, commonly known as "pink eye." Conjunctivitis causes redness, mild discomfort, itching, and mattering on the eyelids. It is very contagious, so you must be careful to wash your hands after touching your face so you don't pass the infection on to others. Conjunctivitis is caused by both viruses and bacteria. It usually responds quickly to treatment with antibiotic drops. These should be placed in the eye a s prescribed (usually every three to four hours while you're awake). If you wear contact lenses, don't put them in your eyes until the infection is cleared and you are no longer using the drops (unless your doctor advises you otherwise). Should you develop increasing eye pain, severe swelling, decreased vision, or fail to improve as expected, please return for re-examination. Low Back Pain Three out of every four people will have an episode of disabling back pain during their lifetime. Most commonly the pain is due to straining of the muscles and ligaments in the low back. Usual treatment includes: (1) Rest on a firm surface. Avoid lying on your stomach. (2) Ice pack the painful area. After a few days, gentle heat may be used intermittently to relax the area, or ice packs can be continued. (3) Medication may be needed -- muscle relaxers and antiinflammatory medicines are commonly used. (4) As the back improves, exercises are prescribed to strengthen the back and abdominal muscles. Your doctor will advise you on the proper care for your back at each stage in your recovery. You may be better in a few days -- or healing may take several weeks. If new symptoms of a "herniated disc" (radiation of pain, numbness, or tingling down the back of the leg or weakness in the leg) occur, you should be re-examined. Further testing may be necessary. * Take medications as prescribed. Try Robitussin-DM to help control your cough. Drink plenty of fluids. Get plenty of rest. Stop smoking marijuana and cigarettes. Follow-up with your primary care provider next week to recheck your symptoms, and to talk with him about your problems urinating. RETURN TO THE EMERGENCY ROOM IF ANY NEW OR WORSENING SYMPTOMS. Prescriptions: Polymyxin B Sulfate/Tmp [Polytrim Oph Soln 10 ml] 1 drop OU Q4 #1 bottle Tramadol HCl [Ultram 50 mg Tablet] 50 mg PO QID PRN #20 tablet PRN Reason: Referrals: ZANE PRITCHARD MD [Primary Care Provider] - Follow up in 3-5 days Scribe Attestation: 12/08/18 14:27 I personally performed the services described in the documentation, reviewed and edited the documentation which was dictated to the scribe in my presence, and it accurately records my words and actions. I personally performed the services described in the documentation, reviewed and edited the documentation which was dictated to the scribe in my presence, and it accurately records my words and actions.
== END 2018-12-08 14:49 | disposition home or self-care (01) ==
LOC: ER 09:32
DX: H10.9 Unspecified conjunctivitis (principal); J40 Bronchitis, not specified as acute or chronic; R05 Cough; M54.5 Low back pain; R30.0 Dysuria; R10.30 Lower abdominal pain, unspecified; R39.12 Poor urinary stream; F17.210 Nicotine dependence, cigarettes, uncomplicated
CPT/HCPCS: 99284; 96374; 36415; 82962; 83690; 85025; 80053; 81001; 80307; 71046; J1885

== ENCOUNTER 2019-04-04 20:05 | Emergency (ER) | payer MEDICARE, MEDICAID ==
[2019-04-04 20:41] VITALS: BP 121/75
--- NOTE | 2019-04-04 22:46 | ER Document Report ---
HPI - HPI Time Seen by Provider: 04/04/19 21:58 Pain Level: 4 Context: Patient is a 53-year-old male that comes to the emergency department for chief complaint of sore throat, sinus pressure worse on the left, sinus congestion, sneezing, occasional mild cough. Symptoms started 5 days ago. He denies fever or chills, headache, difficulty breathing, ear pain. He denies difficulty swallowing. He denies chest pain. He denies smoking. Reports he is treated for BPH but denies medical history otherwise. Reports he was exposed to people with "upper respiratory infections". - CONSTITUTIONAL Constitutional: DENIES: Fever, Chills - EENT EENT: REPORTS: Sore Throat - NEURO Neurology: REPORTS: Headache - RESPIRATORY Respiratory: REPORTS: Coughing Past Medical History - General Information source: Patient - Social History Smoking Status: Never Smoker Frequency of alcohol use: Occasional Drug Abuse: None Lives with: Family Family History: None, Reviewed & Not Pertinent Patient has suicidal ideation: No Patient has homicidal ideation: No Renal/ Medical History: Reports: Hx Benign Prostatic Hyperplasia. Denies: Hx Peritoneal Dialysis Psychiatric Medical History: Reports: Hx Bipolar Disorder Past Surgical History: Reports: Hx Abdominal Surgery - hernia repair, Hx Herniorrhaphy, Hx Orthopedic Surgery - Immunizations Hx Diphtheria, Pertussis, Tetanus Vaccination: No Vertical Provider Document - CONSTITUTIONAL General Appearance: WD/WN, No Apparent Distress - INFECTION CONTROL TRAVEL OUTSIDE OF THE [place] IN LAST 30 DAYS: No - HEENT HEENT: Atraumatic, Normocephalic. negative: Normal ENT Exam - Tenderness over the maxillary sinuses, worse on the left. Exudative pharyngitis noted, however no evidence of peritonsillar abscess, airways patent, uvula is normal. Ears are unremarkable. - NECK Neck: Lymphadenopathy-Left, Lymphadenopathy-Right - RESPIRATORY Respiratory: Breath Sounds Normal, No Respiratory Distress - CARDIOVASCULAR Cardiovascular: Regular Rate, Regular Rhythm - GI/ABDOMEN Gastrointestinal: Abdomen Soft, Abdomen Non-Tender - BACK Back: Normal Inspection - MUSCULOSKELETAL/EXTREMETIES Musculoskeletal/Extremeties: MAEW, FROM, Non-Tender - NEURO Level of Consciousness: Awake, Alert, Appropriate Motor/Sensory: No Motor Deficit, No Sensory Deficit - DERM Integumentary: Warm, Dry, No Rash Course - Re-evaluation Re-evalutation: Patient has mild palpable sinus tenderness worse on the left. He also has exudative pharyngitis without evidence of peritonsillar abscess. He has mild anterior cervical adenopathy. He has no cough on my exam, clear lungs, no hypoxia, no fever, no shortness of breath. Strep test is negative. Discussed with patient. He informs me now that he is actually had sinus tenderness for more than 5 days, more than a week, this is worsening and developing more pain. As result he will be treated for sinus infection. He was given a dexamethasone dose on request after discussing options for pharyngitis. He will be treated with a 10-day course of amoxicillin in case the strep test was false. Discussed expectations, follow-up, return precautions. Patient states satisfaction and agreement with plan. - Vital Signs Vital signs: Temp Pulse Resp BP Pulse Ox 98.3 F 77 18 121/75 98 04/04/19 20:39 04/04/19 20:39 04/04/19 20:39 04/04/19 20:39 04/04/19 20:39 Discharge - Discharge Clinical Impression: Exudative pharyngitis Sinusitis Qualifiers: Sinusitis location: maxillary Chronicity: acute Recurrence: non-recurrent Qualified Code(s): J01.00 - Acute maxillary sinusitis, unspecified Condition: Stable Disposition: HOME, SELF-CARE Additional Instructions: Your strep test is negative. This is most likely a viral infection initially although this appears to have developed into a sinus infection. Take amoxicillin as prescribed to completion. Take Tylenol or ibuprofen for pain, drink plenty of fluids, rest. The Flonase and [id number] antihistamines can help as well. Follow-up with primary care. Return if you worsen including difficulty breathing, developing fever, severe headache, vomiting, difficulty swallowing, or any other concerning or worsening symptoms. Prescriptions: Amoxicillin Trihydrate [Amoxil 500 mg Capsule] 1,000 mg PO BID 10 Days #60 capsu le Fluticasone Propionate [Flonase Nasal [place] 50 Mcg/[place] 16 gm] 2 sprays NASL Q12 #1 inhaler Referrals: ZANE HAND MD [Primary Care Provider] - Follow up as needed
[2019-04-04] MEDS ORDERED: AMOXICILLIN TRIHYDRATE 500 MG CAPSULE PO ONE (23:44)
[2019-04-04] MEDS ORDERED: DEXAMETHASONE SOD PHOS INJ 10 MG/1 ML VIAL IM ONE (23:44)
== END 2019-04-05 00:53 | disposition home or self-care (01) ==
LOC: ER 20:05
DX: J02.9 Acute pharyngitis, unspecified (principal); J01.00 Acute maxillary sinusitis, unspecified; R51 Headache; R05 Cough
CPT/HCPCS: 99284; 96372; 87070; 87880; A9270; J1100

== ENCOUNTER 2019-05-11 11:50 | Emergency (ER) | payer MEDICARE, MEDICAID ==
--- NOTE | 2019-05-11 12:24 | ER Document Report ---
ED Medical Screen (RME) - General Chief Complaint: Abdominal Pain Stated Complaint: HEADACHE Time Seen by Provider: 05/11/19 12:12 Primary Care Provider: ZANE PRITCHARD MD [Primary Care Provider] - Follow up as needed Mode of Arrival: Ambulatory Information source: Patient TRAVEL OUTSIDE OF THE [place] IN LAST 30 DAYS: No - HPI Notes: 05/11/19 12:20 53-year-old male presents to the ED for evaluation of left lower quadrant abdominal pain that sharp, intermittent for the last 3 to 5 days as well as having frequent urination. Reports she recently had sore throat, is concerned he may also have strep throat. Last bowel movement was yesterday, denies any nausea vomiting or diarrhea, states that he also started with a headache yesterday but he is unsure if this is related to congestion. Tried salt water gargles without relief. Denies any bowel or bladder dysfunction, no saddle anesthesia, denies any lower back pain. Was unable to see his primary care provider, Dr. Zane Pritchard and [place] still due to no open appointments today. Eating and drinking has decreased somewhat. Denies any rashes. ROS: Other than noted above, the 12 point review of systems was reviewed with the patient and were negative, all pertinent findings are included in the HPI. PHYSICAL EXAMINATION: Vital signs reviewed. GENERAL: Well-appearing, well-nourished and in no acute distress. HEAD: Atraumatic, normocephalic. NECK: Normal range of motion CV: Heart regular rate and rhythm LUNGS: No respiratory distress ABD: LLQ abd pain, no cva tenderness bilaterally Musculoskeletal: Normal range of motion NEUROLOGICAL: Normal speech PSYCH: Normal mood, normal affect. MDM: Patient seen and examined for rapid initial assessment. Vital signs reviewed. A comprehensive ED assessment and evaluation of the patient, analysis of test results and completion of the medical decision making process will be conducted by additional ED providers. *Note is created using voice recognition software and may contain spelling, syntax or grammatical errors. - Related Data Allergies/Adverse Reactions: No Known Allergies Allergy (Verified 05/11/19 11:50) Past Medical History Renal/ Medical History: Reports: Hx Benign Prostatic Hyperplasia. Denies: Hx Peritoneal Dialysis Psychiatric Medical History: Reports: Hx Bipolar Disorder Past Surgical History: Reports: Hx Abdominal Surgery - hernia repair, Hx Herniorrhaphy, Hx Orthopedic Surgery - Immunizations Hx Diphtheria, Pertussis, Tetanus Vaccination: No Physical Exam - Vital signs Vitals: Temp Pulse Resp BP Pulse Ox 98.3 F 77 20 119/66 97 05/11/19 11:54 05/11/19 11:54 05/11/19 11:54 05/11/19 11:54 05/11/19 11:54 Course - Vital Signs Vital signs: Temp Pulse Resp BP Pulse Ox 98.3 F 77 20 119/66 97 05/11/19 11:54 05/11/19 11:54 05/11/19 11:54 05/11/19 11:54 05/11/19 11:54 Doctor's Discharge - Discharge Referrals: ZANE PRITCHARD MD [Primary Care Provider] - Follow up as needed
[2019-05-11 12:51] LABS: APPEARANCE,URINE CLEAR; BILIRUBIN,URINE NEGATIVE (NEGATIVE); COLOR,URINE YELLOW; GLUCOSE, URINE NEGATIVE (NEGATIVE); KETONES,URINE NEGATIVE (NEGATIVE); LEUKOCYTE ESTERASE,URINE NEGATIVE (NEGATIVE); NITRITE,URINE NEGATIVE (NEGATIVE); PROTEIN,URINE NEGATIVE (NEGATIVE); URINE SPECIFIC GRAVITY 1.021; UROBILINOGEN,URINE NEGATIVE mg/dL (<2.0)
[2019-05-11 12:52] LABS: ABSOLUTE EOSINOPHILS # (AUTO) 0.1 10^3/uL (0.0-0.6); ABSOLUTE LYMPHOCYTES (AUTO) 1.7 10^3/uL (0.5-4.7); ABSOLUTE MONOCYTES (AUTO) 0.3 10^3/uL (0.1-1.4); ABSOLUTE NEUT (AUTO) 2.7 10^3/uL (1.7-8.2); EOSINOPHILS % (AUTO) 2.9 % (0-6); HEMATOCRIT 40.4 % (37.9-51.0); LYMPHOCYTES % (AUTO) 33.9 % (13-45); MEAN CORPUSCULAR HEMOGLOBIN 31.6 pg (27.0-33.4); MEAN CORPUSCULAR HGB CONC 34.6 g/dL (32.0-36.0); MEAN CORPUSCULAR VOLUME 92 fl (80-97); MONOCYTES % (AUTO) 7.1 % (3-13); PLATELET COUNT 243 10^3/uL (150-450); RED BLOOD COUNT 4.41 10^6/uL (4.35-5.55); RED CELL DISTRIBUTION WIDTH 13.5 % (11.5-14.0); SEGMENTED NEUTROPHILS % (AUTO) 55.1 % (42-78); TOTAL CELLS COUNTED % (AUTO) 100 %; WHITE BLOOD COUNT 4.9 10^3/uL (4.0-10.5)
[2019-05-11 13:14] LABS: ALANINE AMINOTRANSFERASE 33 U/L (21-72); ALBUMIN 4.3 g/dL (3.5-5.0); ALKALINE PHOSPHATASE 60 U/L (38-126); ANION GAP 8 (5-19); ASPARTATE AMINO TRANSFERASE 34 U/L (17-59); BILIRUBIN,DIRECT 0.3 mg/dL (0.0-0.4); BILIRUBIN,TOTAL 0.6 mg/dL (0.2-1.3); BLOOD UREA NITROGEN 16 mg/dL (7-20); CALCIUM 9.6 mg/dL (8.4-10.2); CARBON DIOXIDE 26 mmol/L (22-30); CHLORIDE 105 mmol/L (98-107); GLUCOSE 116 mg/dL (75-110); POTASSIUM 4.3 mmol/L (3.6-5.0); TOTAL PROTEIN 7.1 g/dL (6.3-8.2)
--- NOTE | 2019-05-11 13:58 | RADIOLOGY REPORT (SQ) ---
EXAM DESCRIPTION: CT ABD/PELVIS WITH IV ONLY COMPLETED DATE/TIME: 05/11/2019 1:45 pm REASON FOR STUDY: LLQ abd pain, sharp x 3 days COMPARISON: None. TECHNIQUE: CT scan of the abdomen and pelvis performed using helical scanning technique with dynamic intravenous contrast injection. No oral contrast. Images reviewed with lung, soft tissue, and bone windows. Reconstructed coronal and sagittal MPR images reviewed. Delayed images for evaluation of the urinary system also acquired. All images stored on PACS. All CT scanners at this facility use dose modulation, iterative reconstruction, and/or weight based d osing when appropriate to reduce radiation dose to as low as reasonably achievable (ALARA). [facility]: Dose Right [facility]: CareDose [facility]: Dose Right [facility]: Teradose 4D [facility]: Giveo CONTRAST TYPE AND DOSE: contrast/concentration: Isovue 350.00 mg/ml; Total Contrast Delivered: 98.0 ml; Total Saline Delivered: 70.0 ml RENAL FUNCTION: BUN 16, creatinine 1.01 RADIATION DOSE: CT Rad equipment meets quality standard of care and radiation dose reduction techniq ues were employed. CTDIvol: 11.1 - 15.6 mGy. DLP: 1485 mGy-cm.. LIMITATIONS: None. FINDINGS: LOWER CHEST: No significant findings. No nodules or infiltrates. LIVER: Normal size. No masses. No dilated ducts. SPLEEN: Normal size. No focal lesions. PANCREAS: No masses. No significant calcifications. No adjacent inflammation or peripancreatic fluid collections. Pancreatic duct not dilated. GALLBLADDER: No identified stones by CT criteria. No inflammatory changes to suggest cholecystitis. ADRENAL GLANDS: No significant masses or asymmetry. RIGHT KIDNEY AND URETER: No solid masses. No significant calcifications. No hydronephrosis or hyd roureter. LEFT KIDNEY AND URETER: No solid masses. No significant calcifications. No hydronephrosis or hydr oureter. AORTA AND VESSELS: No aneurysm. No dissection. Renal arteries, SMA, celiac without stenosis. RETROPERITONEUM: No retroperitoneal adenopathy, hemorrhage or masses. BOWEL AND PERITONEAL CAVITY: No masses or inflammatory changes. No free fluid or peritoneal masses. APPENDIX: Not visualized. PELVIS: No mass. No free fluid. Normal bladder. ABDOMINAL WALL: No masses. No hernias. BONES: No significant or acute findings. OTHER: No other significant finding. IMPRESSION: NO SIGNIFICANT OR ACUTE FINDING IN THE ABDOMEN OR PELVIS ON CT SCAN WITH IV CONTRAST. TECHNICAL DOCUMENTATION: JOB ID: [id number] Quality ID # [id number]: Final reports with documentation of one or more dose reduction techniques (e.g., Au tomated exposure control, adjustment of the mA and/or kV according to patient size, use of iterative reconstruction technique) 2010 [employer]- All Rights Reserved Reading location - IP/workstation name: [email or web address]
--- NOTE | 2019-05-11 14:51 | ER Document Report ---
ED General - General Chief Complaint: Abdominal Pain Stated Complaint: HEADACHE Time Seen by Provider: 05/11/19 12:12 Primary Care Provider: ZANE HAND MD [Primary Care Provider] - Follow up in 1 week Mode of Arrival: Ambulatory Information source: Patient Notes: This 53-year-old male presents emergency department with left lower quad abdominal pain intermittently for the past 3 to 5 days. He reports feels sharp and stinging. He reports he also has increased from feeling that he needs to void. He reports sometimes his testicles do feel painful when he squeezes his legs together. He reports he is sexually active and does use condoms but sometimes they break. He denies penile discharge. he also complains of a sore throat. Reports his last bowel movement this morning was normal. Patient reports he is been eating drinking has normal. Denies fever vomiting diarrhea. Denies history of chronic abdominal issues. Denies IBS, diverticulitis Crohn's. TRAVEL OUTSIDE OF THE [place] IN LAST 30 DAYS: No - HPI Onset: Other Onset/Duration: Waxing and waning Quality of pain: Sharp Severity: Moderate Pain Level: 3 Associated symptoms: None Exacerbated by: Denies Relieved by: Denies Similar symptoms previously: No Recently seen / treated by doctor: No - Related Data Allergies/Adverse Reactions: No Known Allergies Allergy (Verified 05/11/19 11:50) Past Medical History - General Information source: Patient - Social History Smoking Status: Current Some Day Smoker Cigarette use (# per day): Yes Frequency of alcohol use: None Drug Abuse: None Occupation: disabled Lives with: Alone Family History: None, Reviewed & Not Pertinent Patient has suicidal ideation: No Patient has homicidal ideation: No Renal/ Medical History: Reports: Hx Benign Prostatic Hyperplasia. Denies: Hx Peritoneal Dialysis Psychiatric Medical History: Reports: Hx Bipolar Disorder Past Surgical History: Reports: Hx Abdominal Surgery - hernia repair, Hx Herniorrhaphy, Hx Orthopedic Surgery - Immunizations Hx Diphtheria, Pertussis, Tetanus Vaccination: No Review of Systems - Review of Systems Notes: Review HPI for review of systems., All other systems negative Physical Exam - Vital signs Vitals: Temp Pulse Resp BP Pulse Ox 98.3 F 77 20 119/66 97 05/11/19 11:54 05/11/19 11:54 05/11/19 11:54 05/11/19 11:54 05/11/19 11:54 - General General appearance: Appears well, Alert In distress: None - HEENT Head: Normocephalic, Atraumatic Eyes: Normal Conjunctiva: Normal Pupils: PERRL Ears: Normal External canal: Normal Tympanic membrane: Normal Mouth/Lips: Normal Mucous membranes: Normal, Moist Pharynx: Normal Neck: Normal, Supple. No: Lymphadenopathy - Respiratory Respiratory status: No respiratory distress Chest status: Nontender Breath sounds: Normal Chest palpation: Normal - Cardiovascular Rhythm: Regular Heart sounds: Normal auscultation Murmur: No - Abdominal Inspection: Normal Distension: No distension Bowel sounds: Normal Tenderness: Nontender. No: Tender, McBurney's point, Ang's sign, Guarding, Rebound Organomegaly: No organomegaly - Back Back: Normal - Extremities General upper extremity: Normal ROM General lower extremity: Normal ROM - Neurological Neuro grossly intact: Yes Cognition: Normal Orientation: AAOx4 Tucker Coma Scale Eye Opening: Spontaneous Tucker Coma Scale Verbal: Oriented Tucker Coma Scale Motor: Obeys Commands Tucker Coma Scale Total: 15 Speech: Normal - Psychological Associated symptoms: Normal affect, Normal mood - Skin Skin Temperature: Warm Skin Moisture: Dry Skin Color: Normal Course - Re-evaluation Re-evalutation: 05/11/19 15:09 53-year-old male presents the emergency department with left lower quad abdominal pain that comes and goes for the past 3 to 5 days. He also reports increased risk void. Reports some testicular pain when he squeezes legs. Reports he is sexually active uses condoms but sometimes a break. Denies penile discharge. Also complains of a sore throat. Patient is nontoxic looking sitting on the bed no distress. Labs unremarkable at this time. Abdomen/Pelvis CT 05/11/19 12:19 IMPRESSION: NO SIGNIFICANT OR ACUTE FINDING IN THE ABDOMEN OR PELVIS ON CT SCAN WITH IV CONTRAST. Scrotum Ultrasound 05/11/19 14:24 IMPRESSION: Bilateral hydroceles with debris. This most likely is related to epididymitis and orchitis. Flow is symmetric. No evidence of torsion. 05/11/19 12:30 05/11/19 12:30 MCV 92 fl (80-97) 05/11/19 12:30 MCH 31.6 pg (27.0-33.4) 05/11/19 12:30 MCHC 34.6 g/dL (32.0-36.0) 05/11/19 12:30 RDW 13.5 % (11.5-14.0) 05/11/19 12:30 Seg Neutrophils % 55.1 % (42-78) 05/11/19 12:30 Lymphocytes % 33.9 % (13-45) 05/11/19 12:30 Monocytes % 7.1 % (3-13) 05/11/19 12:30 Eosinophils % 2.9 % (0-6) 05/11/19 12:30 Basophils % 1.0 % (0-2) 05/11/19 12:30 Absolute Neutrophils 2.7 10^3/uL (1.7-8.2) 05/11/19 12:30 Absolute Lymphocytes 1.7 10^3/uL (0.5-4.7) 05/11/19 12:30 Absolute Monocytes 0.3 10^3/uL (0.1-1.4) 05/11/19 12:30 Absolute Eosinophils 0.1 10^3/uL (0.0-0.6) 05/11/19 12:30 Absolute Basophils 0.0 10^3/uL (0.0-0.2) 05/11/19 12:30 Chloride 105 mmol/L (98-107) 05/11/19 12:30 Carbon Dioxide 26 mmol/L (22-30) 05/11/19 12:30 Anion Gap 8 (5-19) 05/11/19 12:30 Est GFR ( Amer) > 60 (>60) 05/11/19 12:30 Est GFR (Non-Af Amer) > 60 (>60) 05/11/19 12:30 Glucose 116 mg/dL (75-110) H 05/11/19 12:30 Calcium 9.6 mg/dL (8.4-10.2) 05/11/19 12:30 Total Bilirubin 0.6 mg/dL (0.2-1.3) 05/11/19 12:30 AST 34 U/L (17-59) 05/11/19 12:30 ALT 33 U/L (21-72) 05/11/19 12:30 Alkaline Phosphatase 60 U/L (38-126) 05/11/19 12:30 Total Protein 7.1 g/dL (6.3-8.2) 05/11/19 12:30 Albumin 4.3 g/dL (3.5-5.0) 05/11/19 12:30 Lipase 49.1 U/L (23-300) 05/11/19 12:30 Urine Color YELLOW 05/11/19 12:30 Urine Appearance CLEAR 05/11/19 12:30 Urine pH 6.0 (5.0-9.0) 05/11/19 12:30 Ur Specific [place] 1.021 05/11/19 12:30 Urine Protein NEGATIVE mg/dL (NEGATIVE) 05/11/19 12:30 Urine Glucose (UA) NEGATIVE mg/dL (NEGATIVE) 05/11/19 12:30 Urine Ketones NEGATIVE mg/dL (NEGATIVE) 05/11/19 12:30 Urine Blood NEGATIVE (NEGATIVE) 05/11/19 12:30 Urine Nitrite NEGATIVE (NEGATIVE) 05/11/19 12:30 Ur Leukocyte Esterase NEGATIVE (NEGATIVE) 05/11/19 12:30 Urine RBC (Auto) 1 /HPF 05/11/19 12:30 05/11/19 18:43 Labs unremarkable ultrasound shows epididymitis CT was negative. He was given some written literature on epididymitis. Patient will be treated with Rocephin and Zithromax while here. He was instructed on importance of follow-up with the health department for recheck. He verbalized understanding to all instructions. - Vital Signs Vital signs: Temp Pulse Resp BP Pulse Ox 98.5 F 60 16 109/89 H 98 05/11/19 16:05 05/11/19 16:05 05/11/19 16:05 05/11/19 16:05 05/11/19 16:05 - Laboratory Result Diagrams: 05/11/19 12:30 05/11/19 12:30 Laboratory results interpreted by me: 05/11/19 05/11/19 12:30 12:33 Glucose 116 H POC Glucose 119 H - Diagnostic Test Radiology reviewed: Image reviewed, Reports reviewed Discharge - Discharge Clinical Impression: Abdominal pain, Epididymitis Condition: Stable Disposition: HOME, SELF-CARE Instructions: Abdominal Pain ([facility]), Azithromycin ([facility]), Epididymitis ([facility]), Use of Prmh-Xvw-Uobrmdx Ibuprofen ([facility]), [facility] [place], Rocephin ([facility]) Additional Instructions: *You have been evaluated for abdominal pain, epididymitis *Rest, wear appropriate underwear *Take ibuprofen as indicated for pain *Follow up with health department within 1 week for recheck. *Avoid sexual intercourse until after follow-up. *Throat culture is pending. You may be contacted should you need antibiotics. *Return to ED for worsening condition, changes, needs *Return to ED if not better in 24 hours Referrals: ZANE HAND MD [Primary Care Provider] - Follow up in 1 week
[2019-05-11 16:07] VITALS: BP 109/89
--- NOTE | 2019-05-11 16:16 | RADIOLOGY REPORT (SQ) ---
EXAM DESCRIPTION: U/S SCROTUM W/DOPPLER COMPLETED DATE/TIME: 05/11/2019 3:58 pm REASON FOR STUDY: testicular pain COMPARISON: None. TECHNIQUE: Static and realtime menchaca scale imaging of the scrotum and testes. Selected color Doppler and spectral images recorded to document blood flow. LIMITATIONS: None. FINDINGS: RIGHT: TESTICLE: Normal size. Normal echotexture. Normal blood flow. No mass. EPIDIDYMIS: Normal. HYDROCELE OR VARICOCELE: There is a right-sided hydrocele with debris. HERNIA OR EXTRA-TESTICULAR MASS: No. OTHER: No other significant finding. LEFT: TESTICLE: Normal size. Normal echotexture. Normal blood flow. No mass. EPIDIDYMIS: Normal. HYDROCELE OR VARICOCELE: There is a left-sided hydrocele with debris. HERNIA OR EXTRA-TESTICULAR MASS: No. OTHER: No other significant finding. IMPRESSION: Bilateral hydroceles with debris. This most likely is related to epididymitis and orchi tis. Flow is symmetric. No evidence of torsion. TECHNICAL DOCUMENTATION: JOB ID: [id number] [employer]- All Rights Reserved Reading location - IP/workstation name: [email or web address]
[2019-05-11] MEDS ORDERED: CEFTRIAXONE INJ 250 MG VIAL IM ONE (16:53)
[2019-05-11] MEDS ORDERED: AZITHROMYCIN 250 MG TABLET PO ONE (16:53)
== END 2019-05-11 17:23 | disposition home or self-care (01) ==
LOC: ER 11:50
DX: N45.1 Epididymitis (principal); R10.32 Left lower quadrant pain; J02.9 Acute pharyngitis, unspecified; F17.210 Nicotine dependence, cigarettes, uncomplicated
CPT/HCPCS: 99284; 96372; 36415; 87070; 87880; 82962; 83690; 85025; 80053; 81001; 76870; 93976; 74177; A9270; J0696

== ENCOUNTER 2019-09-11 15:56 | Emergency (ER) | payer MEDICARE, MEDICAID ==
--- NOTE | 2019-09-11 16:10 | ER Document Report ---
ED Medical Screen (RME) - General Chief Complaint: Groin Pain Stated Complaint: COUGH,CONGESTION Time Seen by Provider: 09/11/19 16:04 Primary Care Provider: ZANE HAND MD [Primary Care Provider] - Follow up as needed Mode of Arrival: Ambulatory Information source: Patient Notes: 53-year-old male presents to ED for cough cold congestion. He states cough is worse in the morning when he coughs up a lot of phlegm. He is also having right scrotal/groin pain. He states it is worse when he walks or if he lifts anything. Patient is alert oriented respirations regular nonlabored speaking in full sentences. He states the groin pain has been about a month comes and goes but is worse today. He states the cough is been intermittent for about 3 weeks since he got a flu shot. Lung sounds are clear to auscultation. Patient states there is no swelling in his groin area at this time. I have greeted and performed a rapid initial assessment of this patient. A comprehensive ED assessment and evaluation of the patient, analysis of test results and completion of medical decision making process will be conducted by an additional ED providers. TRAVEL OUTSIDE OF THE [place] IN LAST 30 DAYS: No - Related Data Allergies/Adverse Reactions: No Known Allergies Allergy (Verified 05/11/19 11:50) Past Medical History Renal/ Medical History: Reports: Hx Benign Prostatic Hyperplasia. Denies: Hx Peritoneal Dialysis Psychiatric Medical History: Reports: Hx Bipolar Disorder Past Surgical History: Reports: Hx Abdominal Surgery - hernia repair, Hx Herniorrhaphy, Hx Orthopedic Surgery - Immunizations Hx Diphtheria, Pertussis, Tetanus Vaccination: No Physical Exam - Vital signs Vitals: Temp Pulse Resp BP Pulse Ox 98.2 F 93 18 136/86 H 97 09/11/19 16:01 09/11/19 16:01 09/11/19 16:01 09/11/19 16:01 09/11/19 16:01 Course - Vital Signs Vital signs: Temp Pulse Resp BP Pulse Ox 98.2 F 93 18 136/86 H 97 09/11/19 16:01 09/11/19 16:01 09/11/19 16:01 09/11/19 16:01 09/11/19 16:01 Doctor's Discharge - Discharge Referrals: ZANE HAND MD [Primary Care Provider] - Follow up as needed
[2019-09-11 16:44] LABS: APPEARANCE,URINE CLEAR; BILIRUBIN,URINE NEGATIVE (NEGATIVE); COLOR,URINE YELLOW; GLUCOSE, URINE NEGATIVE (NEGATIVE); KETONES,URINE NEGATIVE (NEGATIVE); PROTEIN,URINE NEGATIVE (NEGATIVE); URINE SPECIFIC GRAVITY 1.023; UROBILINOGEN,URINE NEGATIVE mg/dL (<2.0)
--- NOTE | 2019-09-11 17:16 | RADIOLOGY REPORT (SQ) ---
EXAM DESCRIPTION: U/S SCROTUM W/O DOPPLER COMPLETED DATE/TIME: 09/11/2019 4:55 pm REASON FOR STUDY: right groin and scrotal pain COMPARISON: None. TECHNIQUE: Static and realtime menchaca scale imaging of the scrotum and testes. Selected color Doppler and spectral images recorded to document blood flow. LIMITATIONS: TESTICULAR ULTRASOUND 05/11/2019 FINDINGS: RIGHT: TESTICLE: Normal size. Normal echotexture. Normal blood flow. No mass. EPIDIDYMIS: Normal. HYDROCELE OR VARICOCELE: Moderate sized hydrocele containing some floating debris. No varicocele HERNIA OR EXTRA-TESTICULAR MASS: No. OTHER: Nonenlarged right inguinal lymph node measuring 0.6 cm in short axis demonstrating no cortical thickening. LEFT: TESTICLE: Normal size. Normal echotexture. Normal blood flow. No mass. EPIDIDYMIS: Normal. HYDROCELE OR VARICOCELE: Moderate sized hydrocele containing some floating debris. No varicocele. HERNIA OR EXTRA-TESTICULAR MASS: No. OTHER: No other significant finding. IMPRESSION: Moderate sized bilateral hydroceles. Nonenlarged, benign-appearing right inguinal lymph node corresponding to area of pain. A reactive ly mph node cannot be excluded. TECHNICAL DOCUMENTATION: JOB ID: [id number] [employer]- All Rights Reserved Reading location - IP/workstation name: [email or web address]
--- NOTE | 2019-09-11 17:17 | RADIOLOGY REPORT (SQ) ---
EXAM DESCRIPTION: CHEST 2 VIEWS COMPLETED DATE/TIME: 09/11/2019 5:02 pm REASON FOR STUDY: cough, congestion COMPARISON: Chest radiographs 12/08/2018 EXAM PARAMETERS: NUMBER OF VIEWS: two views TECHNIQUE: Digital Frontal and Lateral radiographic views of the chest acquired. RADIATION DOSE: NA LIMITATIONS: none FINDINGS: LUNGS AND PLEURA: No opacities, masses or pneumothorax. No pleural effusion. MEDIASTINUM AND HILAR STRUCTURES: No masses or contour abnormalities. HEART AND VASCULAR STRUCTURES: Heart normal size. No evidence for failure. BONES: No acute findings. HARDWARE: None in the chest. OTHER: No other significant finding. IMPRESSION: NO ACUTE RADIOGRAPHIC FINDING IN THE CHEST. TECHNICAL DOCUMENTATION: JOB ID: [id number] [employer]- All Rights Reserved Reading location - IP/workstation name: [email or web address]
[2019-09-11 17:22] LABS: ABSOLUTE BASOPHILS # (AUTO) 0.1 10^3/uL (0.0-0.2); ABSOLUTE EOSINOPHILS # (AUTO) 0.1 10^3/uL (0.0-0.6); ABSOLUTE MONOCYTES (AUTO) 0.6 10^3/uL (0.1-1.4); ABSOLUTE NEUT (AUTO) 2.9 10^3/uL (1.7-8.2); BASOPHILS % (AUTO) 1.2 % (0-2); EOSINOPHILS % (AUTO) 2.2 % (0-6); HEMATOCRIT 41.7 % (37.9-51.0); HEMOGLOBIN 14.4 g/dL (13.5-17.0); LYMPHOCYTES % (AUTO) 35.2 % (13-45); MEAN CORPUSCULAR HEMOGLOBIN 31.9 pg (27.0-33.4); MEAN CORPUSCULAR HGB CONC 34.7 g/dL (32.0-36.0); MEAN CORPUSCULAR VOLUME 92 fl (80-97); PLATELET COUNT 296 10^3/uL (150-450); RED BLOOD COUNT 4.53 10^6/uL (4.35-5.55); RED CELL DISTRIBUTION WIDTH 13.8 % (11.5-14.0); SEGMENTED NEUTROPHILS % (AUTO) 51.4 % (42-78); TOTAL CELLS COUNTED % (AUTO) 100 %; WHITE BLOOD COUNT 5.6 10^3/uL (4.0-10.5)
--- NOTE | 2019-09-11 17:35 | ER Document Report ---
ED GI/ - General Chief Complaint: Groin Pain Stated Complaint: COUGH,CONGESTION Time Seen by Provider: 09/11/19 16:04 Primary Care Provider: JANINA PERALES MD [NO LOCAL MD] - Follow up as needed JASVIR ALFARO MD [ACTIVE STAFF] - Follow up as needed Mode of Arrival: Ambulatory Notes: 53-year-old male presents to ED for cough cold congestion. He states cough is worse in the morning when he coughs up a lot of phlegm. He is also having right scrotal/groin pain. He states it is worse when he walks or if he lifts anything. Patient is alert oriented respirations regular nonlabored speaking in full sentences. He states the groin pain has been about a month comes and goes but is worse today. He states the cough is been intermittent for about 3 weeks since he got a flu shot. Lung sounds are clear to auscultation. Patient states there is no swelling in his groin area at this time. TRAVEL OUTSIDE OF THE [place] IN LAST 30 DAYS: No - Related Data Allergies/Adverse Reactions: No Known Allergies Allergy (Verified 05/11/19 11:50) Past Medical History - General Information source: Patient - Social History Smoking Status: Current Some Day Smoker Frequency of alcohol use: None Drug Abuse: None Family History: None, Reviewed & Not Pertinent Patient has suicidal ideation: No Patient has homicidal ideation: No Renal/ Medical History: Reports: Hx Benign Prostatic Hyperplasia, Hx Hydrocele. Denies: Hx Peritoneal Dialysis Psychiatric Medical History: Reports: Hx Bipolar Disorder Past Surgical History: Reports: Hx Abdominal Surgery - hernia repair, Hx Herniorrhaphy, Hx Orthopedic Surgery - Immunizations Hx Diphtheria, Pertussis, Tetanus Vaccination: No Physical Exam - Vital signs Vitals: Temp Pulse Resp BP Pulse Ox 98.2 F 93 18 136/86 H 97 09/11/19 16:01 09/11/19 16:01 09/11/19 16:01 09/11/19 16:01 09/11/19 16:01 - Notes Notes: PHYSICAL EXAMINATION: GENERAL: Well-appearing, well-nourished and in no acute distress. HEAD: Atraumatic, normocephalic. EYES: Pupils equal round and reactive to light, extraocular movements intact, sclera anicteric, conjunctiva are normal. ENT: Nares patent, oropharynx clear without exudates. Moist mucous membranes. NECK: Normal range of motion, supple without lymphadenopathy LUNGS: Breath sounds clear to auscultation bilaterally and equal. No wheezes rales or rhonchi. HEART: Regular rate and rhythm without murmurs ABDOMEN: Soft, nontender, nondistended abdomen. No guarding, no rebound. No masses appreciated. Genitourinary: No obvious scrotal edema or erythema. Mild tenderness to palpation to scrotal area. Musculoskeletal: Normal range of motion, no pitting or edema. No cyanosis. NEUROLOGICAL: Cranial nerves grossly intact. Normal speech, normal gait. Normal sensory, motor exams PSYCH: Normal mood, normal affect. SKIN: Warm, Dry, normal turgor, no rashes or lesions noted. Course - Re-evaluation Re-evalutation: Laboratory 09/11/19 09/11/19 09/11/19 16:16 17:06 17:06 WBC 5.6 RBC 4.53 Hgb 14.4 Hct 41.7 MCV 92 MCH 31.9 MCHC 34.7 RDW 13.8 Plt Count 296 Lymph % (Auto) 35.2 [place] % (Auto) 10.0 Eos % (Auto) 2.2 Baso % (Auto) 1.2 Absolute Neuts (auto) 2.9 Absolute Lymphs (auto) 2.0 Absolute Monos (auto) 0.6 Absolute Eos (auto) 0.1 Absolute Basos (auto) 0.1 Seg Neutrophils % 51.4 Sodium 139.8 Potassium 4.6 Chloride 107 Carbon Dioxide 25 Anion Gap 8 BUN 15 Creatinine 1.01 Est GFR ( Amer) > 60 Est GFR (MDRD) Non-Af > 60 Glucose 93 Calcium 9.6 Total Bilirubin 0.3 Direct Bilirubin 0.1 Neonat Total Bilirubin Not Reportable Neonat Direct Bilirubin Not Reportable Neonat Indirect Bili Not Reportable AST 38 ALT 41 Alkaline Phosphatase 72 Total Protein 7.5 Albumin 4.2 Urine Color YELLOW Urine Appearance CLEAR Urine pH 6.0 Ur Specific [place] 1.023 Urine Protein NEGATIVE Urine Glucose (UA) NEGATIVE Urine Ketones NEGATIVE Urine Blood NEGATIVE Urine Nitrite (Reflex) NEGATIVE Urine Bilirubin NEGATIVE Urine Urobilinogen NEGATIVE Leukocyte Esterase Rfl NEGATIVE Urine RBC (Auto) 2 Urine WBC (Reflex) 1 Urine Mucus (Auto) RARE Urine Ascorbic Acid NEGATIVE Chest X-Ray 09/11/19 16:06 IMPRESSION: NO ACUTE RADIOGRAPHIC FINDING IN THE CHEST. Scrotum Ultrasound 09/11/19 16:06 IMPRESSION: Moderate sized bilateral hydroceles. Nonenlarged, benign-appearing right inguinal lymph node corresponding to area of pain. A reactive lymph node cannot be excluded. Patient symptoms are consistent with both viral upper respiratory infection as well as bilateral hydroceles on ultrasound. Patient will be started on d oxycycline, prescribe symptomatic relief for the upper respiratory infection and will be referred to urology. Patient verbalizes understanding and agreement with this plan. - Vital Signs Vital signs: Temp Pulse Resp BP Pulse Ox 98.4 F 88 18 130/80 H 97 09/11/19 19:17 09/11/19 19:17 09/11/19 19:17 09/11/19 19:17 09/11/19 16:01 - Laboratory Result Diagrams: 09/11/19 17:06 09/11/19 17:06 Discharge - Discharge Clinical Impression: Respiratory infection Hydrocele Qualifiers: Hydrocele type: unspecified Qualified Code(s): N43.3 - Hydrocele, unspecified Condition: Stable Disposition: HOME, SELF-CARE Additional Instructions: Hydrocele You have been diagnosed as having a hydrocele. The sac that holds the testicles is called the scrotum. A hydrocele is usually a painless collection of fluid in the membrane that covers the testicle(s). This may be present at bir th or develop later on in life. The cause is usually unknown. In infants a hydrocele can be due to a miscommunication of the fluid surrounding the testes. In adults a hydrocele may form due to injury or inflammation of surrounding structures. Most hydroceles require no treatment, and usually resolve on their own. However, sometimes surgical intervention is recommended for recurrent, or for unusually large hydroceles. The surgery to fix a hydrocele is a minor procedure and usually takes about 1 and 1/2 hours. You were given antibiotics here in the emergency department for possible STD infection. You were also given a prescription of doxycycline. I have given you information for both the urologist as well as a general surgeon. Please contact both of them to schedule follow-ups. I would probably schedule the urology follow-up first. Let them know you need to be seen for recurrent hydroceles. Prescriptions: Doxycycline Hyclate 100 mg PO BID #14 capsule Referrals: JANINA PERALES MD [NO LOCAL MD] - Follow up as needed JASVIR ALFARO MD [ACTIVE STAFF] - Follow up as needed
[2019-09-11 17:43] LABS: ALBUMIN 4.2 g/dL (3.5-5.0); ALKALINE PHOSPHATASE 72 U/L (38-126); ANION GAP 8 (5-19); ASPARTATE AMINO TRANSFERASE 38 U/L (17-59); BILIRUBIN,DIRECT 0.1 mg/dL (0.0-0.4); BILIRUBIN,TOTAL 0.3 mg/dL (0.2-1.3); BLOOD UREA NITROGEN 15 mg/dL (7-20); CALCIUM 9.6 mg/dL (8.4-10.2); CARBON DIOXIDE 25 mmol/L (22-30); CHLORIDE 107 mmol/L (98-107); GLUCOSE 93 mg/dL (75-110); POTASSIUM 4.6 mmol/L (3.6-5.0); TOTAL PROTEIN 7.5 g/dL (6.3-8.2)
[2019-09-11] MEDS ORDERED: CEFTRIAXONE INJ 250 MG VIAL IM ONE (18:05)
[2019-09-11] MEDS ORDERED: LIDOCAINE 1% INJ-PF (10 MG/ML) 30 ML SDV IM ONE (18:05)
[2019-09-11] MEDS ORDERED: AZITHROMYCIN 250 MG TABLET PO ONE (18:05)
[2019-09-11 19:20] VITALS: BP 130/80
== END 2019-09-11 19:17 | disposition home or self-care (01) ==
LOC: ER 15:56
DX: J06.9 Acute upper respiratory infection, unspecified (principal); N43.3 Hydrocele, unspecified; R05 Cough; N50.82 Scrotal pain; R10.30 Lower abdominal pain, unspecified; F17.200 Nicotine dependence, unspecified, uncomplicated
CPT/HCPCS: 99284; 96372; 36415; 85025; 80053; 81001; 71046; 76870; A9270; J3490; J0696

== ENCOUNTER 2019-11-09 08:32 | Emergency (ER) | payer MEDICARE, MEDICAID ==
[2019-11-09 10:26] LABS: ABSOLUTE BASOPHILS # (AUTO) 0.1 10^3/uL (0.0-0.2); ABSOLUTE EOSINOPHILS # (AUTO) 0.2 10^3/uL (0.0-0.6); ABSOLUTE LYMPHOCYTES (AUTO) 1.5 10^3/uL (0.5-4.7); ABSOLUTE MONOCYTES (AUTO) 0.3 10^3/uL (0.1-1.4); ABSOLUTE NEUT (AUTO) 2.2 10^3/uL (1.7-8.2); BASOPHILS % (AUTO) 1.4 % (0-2); EOSINOPHILS % (AUTO) 3.6 % (0-6); HEMATOCRIT 42.4 % (37.9-51.0); HEMOGLOBIN 14.3 g/dL (13.5-17.0); LYMPHOCYTES % (AUTO) 36.3 % (13-45); MEAN CORPUSCULAR HEMOGLOBIN 31.1 pg (27.0-33.4); MEAN CORPUSCULAR HGB CONC 33.6 g/dL (32.0-36.0); MEAN CORPUSCULAR VOLUME 93 fl (80-97); PLATELET COUNT 256 10^3/uL (150-450); RED BLOOD COUNT 4.59 10^6/uL (4.35-5.55); RED CELL DISTRIBUTION WIDTH 13.5 % (11.5-14.0); SEGMENTED NEUTROPHILS % (AUTO) 50.7 % (42-78); TOTAL CELLS COUNTED % (AUTO) 100 %; WHITE BLOOD COUNT 4.2 10^3/uL (4.0-10.5)
[2019-11-09 10:37] LABS: ALKALINE PHOSPHATASE 74 U/L (38-126); ANION GAP 8 (5-19); ASPARTATE AMINO TRANSFERASE 30 U/L (17-59); BILIRUBIN,DIRECT 0.2 mg/dL (0.0-0.4); BILIRUBIN,TOTAL 0.4 mg/dL (0.2-1.3); BLOOD UREA NITROGEN 14 mg/dL (7-20); CALCIUM 9.8 mg/dL (8.4-10.2); CARBON DIOXIDE 30 mmol/L (22-30); CHLORIDE 105 mmol/L (98-107); GLUCOSE 99 mg/dL (75-110); POTASSIUM 4.4 mmol/L (3.6-5.0); TOTAL PROTEIN 7.1 g/dL (6.3-8.2)
--- NOTE | 2019-11-09 11:43 | RADIOLOGY REPORT (SQ) ---
EXAM DESCRIPTION: CT PELVIS WITH COMPLETED DATE/TIME: 11/09/2019 11:07 am REASON FOR STUDY: rectal pain/evaluate for abscess COMPARISON: 05/11/2019 TECHNIQUE: CT scan of the pelvis performed without intravenous or oral contrast. Images reviewed wi th soft tissue and bone windows. Reconstructed coronal and sagittal MPR images reviewed. All images stored on PACS. All CT scanners at this facility use dose modulation, iterative reconstruction, and/or weight based d osing when appropriate to reduce radiation dose to as low as reasonably achievable (ALARA). [facility]: Dose Right [facility]: CareDose [facility]: Dose Right [facility]: Teradose 4D [facility]: ChipCare RADIATION DOSE: CT Rad equipment meets quality standard of care and radiation dose reduction techniq ues were employed. CTDIvol: 10.4 - 14.9 mGy. DLP: 996 mGy-cm. mGy. LIMITATIONS: None. FINDINGS: PELVIC BONES: No acute fracture. No worrisome bone lesions. VISUALIZED SPINE: No acute findings. HIP(S): No acute fracture or dislocation. No worrisome bone lesions. PELVIC SOFT TISSUES: No significant findings. EXTRAPELVIC SOFT TISSUES: No significant findings. Tiny fat containing inguinal hernia on the left. OTHER: No other significant finding. IMPRESSION: Unremarkable pelvic CT. No evidence of pelvic or perirectal abscess. TECHNICAL DOCUMENTATION: JOB ID: [id number] Quality ID # [id number]: Final reports with documentation of one or more dose reduction techniques (e.g., Au tomated exposure control, adjustment of the mA and/or kV according to patient size, use of iterative reconstruction technique) 2010 [employer]- All Rights Reserved Reading location - IP/workstation name: [email or web address]
--- NOTE | 2019-11-09 12:18 | ER Document Report ---
ED General - General Chief Complaint: Rectal Pain Stated Complaint: RECTAL PAIN Time Seen by Provider: 11/09/19 09:09 Primary Care Provider: ZANE HAND MD [Primary Care Provider] - Follow up as needed Mode of Arrival: Ambulatory Information source: Patient TRAVEL OUTSIDE OF THE [place] IN LAST 30 DAYS: No - HPI Notes: Patient presents with rectal pain. He states his pain is severe and is been going on for about 5 to 7 days. He states that it is worse when he has a bowel movement or tries to wipe after having a bowel movement. He states in the past has been told he has hemorrhoids so he is been trying Preparation H with no relief. This pain is severe. It is a burning sensation. It is worse with bowel movements or touching. It is at or if left alone. The pain does not radiate. It is intermittent. Patient denies any abdominal pain no vomiting diarrhea or fevers. No history of rectal abscesses. - Related Data Allergies/Adverse Reactions: No Known Allergies Allergy (Verified 05/11/19 11:50) Home Medications: Tamsulosin, Welbutrin Past Medical History - General Information source: Patient - Social History Smoking Status: Current Some Day Smoker Frequency of alcohol use: None Drug Abuse: None Family History: None, Reviewed & Not Pertinent Patient has suicidal ideation: No Patient has homicidal ideation: No Renal/ Medical History: Reports: Hx Benign Prostatic Hyperplasia, Hx Hydrocele. Denies: Hx Peritoneal Dialysis Psychiatric Medical History: Reports: Hx Bipolar Disorder Past Surgical History: Reports: Hx Abdominal Surgery - hernia repair, Hx Herniorrhaphy, Hx Orthopedic Surgery - Immunizations Hx Diphtheria, Pertussis, Tetanus Vaccination: No Review of Systems - Review of Systems Constitutional: denies: Chills, Fever Cardiovascular: denies: Chest pain, Palpitations Respiratory: denies: Cough, Short of breath -: Yes All other systems reviewed and negative Physical Exam - Vital signs Vitals: Temp Pulse Resp BP Pulse Ox 97.6 F 84 16 135/67 H 100 11/09/19 08:50 11/09/19 08:50 11/09/19 08:50 11/09/19 08:50 11/09/19 08:50 Interpretation: Normal - General General appearance: Appears well, Alert - HEENT Head: Normocephalic, Atraumatic Eyes: Normal Pupils: PERRL - Respiratory Respiratory status: No respiratory distress Chest status: Nontender Breath sounds: Normal Chest palpation: Normal - Cardiovascular Rhythm: Regular Heart sounds: Normal auscultation Murmur: No - Abdominal Inspection: Normal Distension: No distension Bowel sounds: Normal Tenderness: Nontender Organomegaly: No organomegaly - Rectal Tenderness: Yes - Patient has tenderness between 6 and 12:00. Inspection of this area is unr Stool: Heme negative Hemorrhoids: None Prostate: Normal - Back Back: Normal, Nontender - Extremities General upper extremity: Normal inspection, Nontender, Normal color, Normal ROM, Normal temperature General lower extremity: Normal inspection, Nontender, Normal color, Normal ROM, Normal temperature, Normal weight bearing. No: Steve's sign - Neurological Neuro grossly intact: Yes Cognition: Normal Orientation: AAOx4 [place] Coma Scale Eye Opening: Spontaneous [place] Coma Scale Verbal: Oriented [place] Coma Scale Motor: Obeys Commands [place] Coma Scale Total: 15 Speech: Normal Motor strength normal: LUE, RUE, LLE, RLE Sensory: Normal - Psychological Associated symptoms: Normal affect, Normal mood - Skin Skin Temperature: Warm Skin Moisture: Dry Skin Color: Normal Course - Re-evaluation Re-evalutation: 11/09/19 12:15 Patient presents with complaints of severe rectal pain. However exam of the area is unremarkable. I do not appreciate any hemorrhoids or fissures. The skin looks mildly excoriated possibly like a dermatitis. On rectal exam he had no significant tenderness around the anal sphincter. No significant prostate tenderness. Due to the fact that he was complaining of severe pain without any significant abnormalities appreciated a CT to make sure there is not a deep abscess. CT was unremarkable. - Vital Signs Vital signs: Temp Pulse Resp BP Pulse Ox 97.6 F 84 16 135/67 H 100 11/09/19 08:50 11/09/19 08:50 11/09/19 08:50 11/09/19 08:50 11/09/19 08:50 - Laboratory Result Diagrams: 11/09/19 10:00 11/09/19 10:00 - Diagnostic Test Radiology reviewed: Image reviewed, Reports reviewed Discharge - Discharge Clinical Impression: Rectal pain Condition: Stable Disposition: HOME, SELF-CARE Additional Instructions: Please call your family physician as soon as possible to arrange follow-up Prescriptions: Hydrocortisone [Anusol-Hc] 30 gm TP TID 14 Days #1 cream..g. Referrals: ZANE HAND MD [Primary Care Provider] - Follow up as needed
[2019-11-09 12:45] VITALS: BP 148/89
== END 2019-11-09 12:47 | disposition home or self-care (01) ==
LOC: ER 08:32
DX: K62.89 Other specified diseases of anus and rectum (principal); F17.200 Nicotine dependence, unspecified, uncomplicated; N40.0 Benign prostatic hyperplasia without lower urinary tract symptoms; F31.9 Bipolar disorder, unspecified; Z79.899 Other long term (current) drug therapy
CPT/HCPCS: 36415; 72193; 80053; 85025; 99284